=== PATIENT | male | born 1945 | race Caucasian/White ===

== ENCOUNTER 2017-11-30 18:30 | Emergency (ER) | payer MEDICARE, OTHER ==
[~2017-11-30] VITALS: Ht 175.3 cm; Wt 88.5 kg
[2017-11-30 18:43] VITALS: BP 125/58; PULSE 84; RESP 16; TEMP 99.2; O2SAT 98
--- NOTE | 2017-11-30 18:57 | PD ---
HPI Chief Complaint: Dizziness Time Seen by Provider: 18:49 Travel History International Travel<30 days: No Contact w/Intl Traveler<30days: No Traveled to known affect area: No History of Present Illness HPI 72-year-old male with history of CAD with stent placement, valve replacement, colitis, presents emergency department for evaluation. Patient states since getting his pneumonia vaccine 2 weeks and 3 days ago, his head has felt heavier. He feels as though it is foggy. He has been in [place] now for a week with plans to go back to [place] tomorrow. Prior to leaving he was unable to fill his allergy medicine because it was not due for renewal yet. He states over the last few days he has become more foggy in his head hurts from his forehead to his neck. He denies any trauma. No nausea vomiting. He states today he was transitioning from sitting to standing and he felt lightheaded. This was brief. It subsided however he continues to have this headache. Denies any chest pain or tightness. No difficulty breathing. No other symptoms to report. PFSH Past Medical History Cardiovascular Problems: Yes (STENT) Social History Tobacco Use: No Allergies-Medications (Allergen,Severity, Reaction): Coded Allergies: No Known Allergies (Verified Allergy, Unknown, 11/30/17) Review of Systems Except as stated in HPI: all other systems reviewed are Neg Physical Exam Narrative GENERAL well-nourished male patient, no acute distress. SKIN: Focused skin assessment warm/dry. HEAD: Atraumatic. Normocephalic. EYES: Pupils equal and round. No scleral icterus. No injection or drainage. ENT: No nasal bleeding or discharge. Mucous membranes pink and moist. Nasal turbinates are red and inflamed. NECK: Trachea midline. No JVD. CARDIOVASCULAR: Regular rate and rhythm. No murmur appreciated. RESPIRATORY: No accessory muscle use. Clear to auscultation. Breath sounds equal bilaterally. GASTROINTESTINAL: Abdomen soft, non-tender, nondistended. Hepatic and splenic margins not palpable. MUSCULOSKELETAL: No obvious deformities. No clubbing. No cyanosis. No edema. NEUROLOGICAL: Awake and alert. No obvious cranial nerve deficits. Motor grossly within normal limits. Normal speech. PSYCHIATRIC: Appropriate mood and affect; insight and judgment normal. Data Data Last Documented VS Vital Signs Date Time Temp Pulse Resp B/P (MAP) Pulse Ox O2 Delivery O2 Flow Rate FiO2 3/2/18 21:48 11/30/17 21:04 69 18 72 18 76 18 11/30/17 20:44 99 Room Air 11/30/17 18:43 99.2 Orders Orders Electrocardiogram (11/30/17 19:21) Basic Metabolic Panel (Bmp) (11/30/17 19:21) Complete Blood Count With Diff (11/30/17 19:21) Ckmb (Isoenzyme) Profile (11/30/17 19:21) Troponin I (11/30/17 19:21) Act Partial Throm Time (Ptt) (11/30/17 19:21) Urinalysis - C+S If Indicated (11/30/17 19:21) Chest, Single Ap (11/30/17 19:21) Ct Brain W/O Iv Contrast(Rout) (11/30/17 19:21) Ecg Monitoring (11/30/17 19:21) Iv Access Insert/Monitor (11/30/17 19:21) Oximetry (11/30/17 19:21) Sodium Chloride 0.9% Flush (Ns Flush) (11/30/17 19:30) Sodium Chlor 0.9% 1000 Ml Inj (Ns 1000 M (11/30/17 19:21) Orthostatic Vital Signs (11/30/17 20:35) CKMB (11/30/17 19:30) CKMB% (11/30/17 19:30) Ketorolac Inj (Toradol Inj) (11/30/17 20:45) Prothrombin Time / Inr (Pt) (11/30/17 20:13) Ed Discharge Order (11/30/17 21:23) Labs Laboratory Tests Test 11/30/17 19:28 11/30/17 19:30 Urine Color YELLOW Urine Turbidity CLEAR Urine pH 5.5 Urine Specific [place] 1.020 Urine Protein TRACE mg/dL Urine Glucose (UA) NEG mg/dL Urine Ketones NEG mg/dL Urine Occult Blood NEG Urine Nitrite NEG Urine Bilirubin NEG Urine Urobilinogen LESS THAN 2.0 MG/DL Urine Leukocyte Esterase TRACE Urine RBC 1 /hpf Urine WBC 3 /hpf Urine Mucus FEW /lpf Microscopic Urinalysis Comment CULT NOT INDICATED White Blood Count 5.6 TH/MM3 Red Blood Count 3.36 MIL/MM3 Hemoglobin 11.0 GM/DL Hematocrit 31.8 % Mean Corpuscular Volume 94.7 FL Mean Corpuscular Hemoglobin 32.9 PG Mean Corpuscular Hemoglobin Concent 34.7 % Red Cell Distribution Width 14.2 % Platelet Count 308 TH/MM3 Mean Platelet Volume 6.2 FL Neutrophils (%) (Auto) 76.7 % Lymphocytes (%) (Auto) 5.0 % Monocytes (%) (Auto) 12.2 % Eosinophils (%) (Auto) 5.5 % Basophils (%) (Auto) 0.6 % Neutrophils # (Auto) 4.3 TH/MM3 Lymphocytes # (Auto) 0.3 TH/MM3 Monocytes # (Auto) 0.7 TH/MM3 Eosinophils # (Auto) 0.3 TH/MM3 Basophils # (Auto) 0.0 TH/MM3 CBC Comment DIFF FINAL Differential Comment Prothrombin Time 11.0 SEC Prothromb Time International Ratio 1.1 RATIO Activated Partial Thromboplast Time 27.8 SEC Blood Urea Nitrogen 17 MG/DL Creatinine 1.22 MG/DL Random Glucose 91 MG/DL Calcium Level 8.8 MG/DL Sodium Level 134 MEQ/L Potassium Level 4.1 MEQ/L Chloride Level 100 MEQ/L Carbon Dioxide Level 27.1 MEQ/L Anion Gap 7 MEQ/L Estimat Glomerular Filtration Rate 58 ML/MIN Total Creatine Kinase 128 U/L Creatine Kinase MB LESS THAN 0.5 NG/ML Troponin I LESS THAN 0.02 NG/ML MDM Medical Decision Making Medical Screen Exam Complete: Yes Emergency Medical Condition: Yes Medical Record Reviewed: Yes Differential Diagnosis Sinusitis versus electrolyte abnormality versus intracranial etiology versus otitis media versus syncope versus near syncope Narrative Course 72-year-old male presents emergency department for evaluation. Patient appears well and without distress. His vital signs are stable. Orthostatic vital signs are also stable. Neuro exam is nonfocal. EKG is completed and reviewed by my attending with no ST elevation or depression. Laboratory Tests Test 11/30/17 19:28 11/30/17 19:30 Urine Color YELLOW Urine Turbidity CLEAR Urine pH 5.5 Urine Specific [place] 1.020 Urine Protein TRACE mg/dL Urine Glucose (UA) NEG mg/dL Urine Ketones NEG mg/dL Urine Occult Blood NEG Urine Nitrite NEG Urine Bilirubin NEG Urine Urobilinogen LESS THAN 2.0 MG/DL Urine Leukocyte Esterase TRACE Urine RBC 1 /hpf Urine WBC 3 /hpf Urine Mucus FEW /lpf Microscopic Urinalysis Comment CULT NOT INDICATED White Blood Count 5.6 TH/MM3 Red Blood Count 3.36 MIL/MM3 Hemoglobin 11.0 GM/DL Hematocrit 31.8 % Mean Corpuscular Volume 94.7 FL Mean Corpuscular Hemoglobin 32.9 PG Mean Corpuscular Hemoglobin Concent 34.7 % Red Cell Distribution Width 14.2 % Platelet Count 308 TH/MM3 Mean Platelet Volume 6.2 FL Neutrophils (%) (Auto) 76.7 % Lymphocytes (%) (Auto) 5.0 % Monocytes (%) (Auto) 12.2 % Eosinophils (%) (Auto) 5.5 % Basophils (%) (Auto) 0.6 % Neutrophils # (Auto) 4.3 TH/MM3 Lymphocytes # (Auto) 0.3 TH/MM3 Monocytes # (Auto) 0.7 TH/MM3 Eosinophils # (Auto) 0.3 TH/MM3 Basophils # (Auto) 0.0 TH/MM3 CBC Comment DIFF FINAL Differential Comment Prothrombin Time 11.0 SEC Prothromb Time International Ratio 1.1 RATIO Activated Partial Thromboplast Time 27.8 SEC Blood Urea Nitrogen 17 MG/DL Creatinine 1.22 MG/DL Random Glucose 91 MG/DL Calcium Level 8.8 MG/DL Sodium Level 134 MEQ/L Potassium Level 4.1 MEQ/L Chloride Level 100 MEQ/L Carbon Dioxide Level 27.1 MEQ/L Anion Gap 7 MEQ/L Estimat Glomerular Filtration Rate 58 ML/MIN Total Creatine Kinase 128 U/L Creatine Kinase MB LESS THAN 0.5 NG/ML Troponin I LESS THAN 0.02 NG/ML Chest x-ray shows scattered atelectatic changes within the lung bases bilaterally. Brain CT shows CONCLUSION: 1. Mild cerebral atrophy. 2. No acute infarct, acute hemorrhage, mass effect or extra-axial fluid collections. 3. Mild mucosal thickening within left sphenoid sinus. I have discussed this with my attending physician who is also reviewed the findings. I discussed with the patient and offered him observation status for further evaluation of this sensation of lightheaded and his headache. He tells me after his fluids and Toradol he has absolutely no headache at all. I do feel this is likely related to his sinusitis and his allergies. Patient does have a bell clerk to receive 3 times a year. He has a primary care provider who he also follows up with regularly. He agrees to follow-up upon return home. He agrees to return immediately with any acute worsening symptoms. Diagnosis Primary Impression: Light-headed feeling Additional Impression: Sinusitis, acute, sphenoidal Qualified Codes: J01.30 - Acute sphenoidal sinusitis, unspecified Referrals: Primary Care Physician Patient Instructions: General Instructions, Lightheadedness (ED), Sinusitis (ED ) Additional Instructions: Follow-up with a primary care provider Follow-up with your bell clerk [id number] Zyrtec or other antihistamine as directed on the package may help alleviate your symptoms [id number] Nasonex may also help alleviate your symptoms. Take as directed Normal saline nasal spray as directed on the package. Return immediately to the emergency department with any acute worsening symptoms Med/Other Pt SpecificInfo: No Change to Meds Disposition: 01 DISCHARGE HOME Condition: Stable Chetna Buckley Nov 30, 2017 18:57
[2017-11-30 19:21] VITALS: BP 105/59; PULSE 77; RESP 18; O2SAT 97
[2017-11-30] MEDS ORDERED: SODIUM CHLOR 0.9% 1000 ML INJ 1,000 ML IV ONE (19:21)
[2017-11-30 19:26] VITALS: RESP 18; O2SAT 97
[2017-11-30] MEDS ORDERED: SODIUM CHLORIDE 0.9% FLUSH 10 ML FLUSH IVF PRN (19:30)
--- NOTE | 2017-11-30 20:01 | RADRPT ---
EXAM DATE/TIME: 11/30/2017 19:50 [facility] COMPARISON: No previous studies available for comparison. INDICATIONS : Severe neck pain , headache and dizziness. RADIATION DOSE: 38.90 CTDIvol (mGy) MEDICAL HISTORY : Cardiovascular disease. SURGICAL HISTORY : None. ENCOUNTER: Initial ACUITY: 2 days PAIN SCALE: 8/10 LOCATION: cranial TECHNIQUE: Multiple contiguous axial images were obtained of the head. Using automated exposure control and adj ustment of the mA and/or kV according to patient size, radiation dose was kept as low as reasonably a chievable to obtain optimal diagnostic quality images. DICOM format image data is available electro nically for review and comparison. FINDINGS: CEREBRUM: Mild cerebral atrophy is noted. No evidence of midline shift, mass lesion, hemorrhage or acute infar ction. No extra-axial fluid collections are seen. POSTERIOR FOSSA: The cerebellum and brainstem are intact. The 4th ventricle is midline. The cerebellopontine angle i s unremarkable. EXTRACRANIAL: The visualized portion of the orbits is intact. Mild mucosal thickening is noted within the left sphe noid sinus. SKULL: The calvaria is intact. No evidence of skull fracture. CONCLUSION: 1. Mild cerebral atrophy. 2. No acute infarct, acute hemorrhage, mass effect or extra-axial fluid collections. 3. Mild mucosal thickening within left sphenoid sinus. 1. Manuel Haider MD on November 30, 2017 at 19:59 Board Certified Radiologist. This report was verified electronically.
--- NOTE | 2017-11-30 20:04 | RADRPT ---
EXAM DATE/TIME: 11/30/2017 19:38 [facility] COMPARISON: No previous studies available for comparison. INDICATIONS : Palpitations. MEDICAL HISTORY : None. SURGICAL HISTORY : None. ENCOUNTER: Initial ACUITY: 1 day PAIN SCORE: 0/10 LOCATION: Bilateral chest FINDINGS: Scattered atelectatic changes are noted within the lung bases bilaterally. The heart is normal. CONCLUSION: Scattered atelectatic changes within the lung bases bilaterally. Manuel Haider MD on November 30, 2017 at 20:02 Board Certified Radiologist. This report was verified electronically.
[2017-11-30 20:11] LABS: AUTOMATED NEUTROPHIL # 4.3 TH/MM3 (1.8-7.7); BASOPHIL % 0.6 % (0.0-2.0); EOSINOPHIL # 0.3 TH/MM3 (0-0.4); EOSINOPHIL % 5.5 % (0.0-4.0); HEMATOCRIT 31.8 % (39.0-51.0); LYMPHOCYTE # 0.3 TH/MM3 (1.0-4.8); MEAN CELL VOLUME 94.7 FL (80.0-100.0); MEAN CORPUSCULAR HEMOGLOBIN 32.9 PG (27.0-34.0); MEAN CORPUSCULAR HGB CONC 34.7 % (32.0-36.0); MEAN PLATELET VOLUME 6.2 FL (7.0-11.0); MONO % 12.2 % (0.0-8.0); MONOCYTE # 0.7 TH/MM3 (0-0.9); NEUT % 76.7 % (16.0-70.0); PLATELET COUNT 308 TH/MM3 (150-450); RED BLOOD COUNT 3.36 MIL/MM3 (4.50-5.90); RED CELL DISTRIBUTION WIDTH 14.2 % (11.6-17.2); WHITE BLOOD COUNT 5.6 TH/MM3 (4.0-11.0)
[2017-11-30 20:23] LABS: BILIRUBIN, URINE NEG (NEG); BLOOD, URINE NEG (NEG); GLUCOSE,URINE NEG (NEG); KETONE, URINE NEG (NEG); MUCUS URINE FEW /lpf (OCC); NITRITE,URINE NEG (NEG); PH, URINE 5.5 (5.0-8.5); URINE COLOR YELLOW (YELLW/STRAW); URINE LEUKOCYTE ESTERASE TRACE (NEG)
[2017-11-30 20:32] LABS: BICARBONATE 27.1 MEQ/L (21.0-32.0); BLOOD UREA NITROGEN 17 MG/DL (7-18); CALCIUM 8.8 MG/DL (8.5-10.1); CHLORIDE 100 MEQ/L (98-107); CREATININE 1.22 MG/DL (0.60-1.30); GLOMERULAR FILTRATION RATE 58 ML/MIN (>89); GLUCOSE,RANDOM 91 MG/DL (74-106); SODIUM (NA) 134 MEQ/L (136-145)
[2017-11-30 20:37] LABS: TROPONIN I LESS THAN 0.02 NG/ML (0.02-0.05)
[2017-11-30 20:44] VITALS: BP 128/64; O2SAT 99
[2017-11-30] MEDS ORDERED: KETOROLAC TROMETHAMINE 30 MG/ML (IVP) VIAL IV PUSH ONE (20:45)
[2017-11-30 20:58] LABS: INTERNATIONAL NORMALIZED RATIO 1.1 RATIO
[2017-11-30 21:04] VITALS: BP_SYST 117; BP_SYST 130; BP_SYST 141; BP_DIAS 60; BP_DIAS 69; RESP 18
--- NOTE | 2017-12-01 09:07 | EKG ---
Date Performed: 11/30/2017 Time Performed: 20:39:06 PTAGE: 72 years EKG: Sinus rhythm MARKED LEFT AXIS DEVIATION LOW QRS VOLTAGE IN PRECORDIAL LEADS INCOMPLETE RIGHT BUNDLE BRANCH BLOCK ABNORMAL ECG NO PREVIOUS TRACING DOCTOR: Frederick Vernon Interpretating Date/Time 12/01/2017 09:06:07
== END 2017-11-30 21:55 | disposition home or self-care (01) ==
LOC: NEPC 18:30
DX: J01.30 Acute sphenoidal sinusitis, unspecified (principal); R42 Dizziness and giddiness; I25.10 Atherosclerotic heart disease of native coronary artery without angina pectoris; R94.31 Abnormal electrocardiogram [ECG] [EKG]
CPT/HCPCS: 70450; 71045; 80048; 81001; 82550; 82552; 84484; 85025; 85610; 85730; 93005; 96361; 96374; 99285; J1885; J7030